=== PATIENT | male | born 1960 | race Caucasian/White ===

== ENCOUNTER 2017-05-05 16:29 | Emergency (ER) | payer SELFPAY ==
[~2017-05-05] VITALS: Ht 188 cm; Wt 102.0 kg
[2017-05-05] MEDS ORDERED: LISINOPRIL10 MG PO (16:37)
[2017-05-05 17:11] LABS: HEMATOCRIT 38.6 % (39.0-50.0); HEMOGLOBIN 13.2 g/dl (14.0-18.0); IMMATURE GRANULOCYTES 0.2 % (0.0-1.0); MEAN CELL VOLUME 93.2 fL CALC (80.0-100.0); MEAN CORPUSCULAR HGB 31.9 pG CALC (26.0-32.0); MEAN CORPUSCULAR HGB CONC 34.2 g/L CALC (32.0-36.0); NEUT# 2.61 thou/uL (1.82-7.42); RED BLOOD COUNT 4.14 mill/uL (4.70-6.10); RED CELL DISTRI WIDTH 12.2 % (11.5-15.5)
[2017-05-05 17:24] LABS: URINE BILIRUBIN - DIPSTICK NEGATIVE (NEGATIVE); URINE BLOOD DIPSTICK TRACE-INTACT (NEGATIVE); URINE CLARITY CLEAR; URINE COLOR YELLOW; URINE GLUCOSE - DIPSTICK NEGATIVE (NEGATIVE); URINE KETONE NEGATIVE (NEGATIVE); URINE LEUK ESTERASE NEGATIVE (NEGATIVE); URINE NITRITE - DIPSTICK NEGATIVE (Negative); URINE PROTEIN - DIPSTICK NEGATIVE (NEG-TRACE); URINE SPECIFIC GRAVITY <=1.005; URINE UROBILINOGEN - DIPSTICK 0.2 E.U./dL (0.2)
[2017-05-05 17:27] LABS: BARBITURATES NEGATIVE (NEGATIVE); COCAINE NEGATIVE (NEGATIVE); METHADONE NEGATIVE (NEGATIVE); OXCYCODONE NEGATIVE (NEGATIVE); TETRAHYDROCANNABIONOL NEGATIVE (NEGATIVE); TRICYLIC ANTIDEPRESSANTS NEGATIVE (NEGATIVE)
[2017-05-05 17:31] LABS: ALBUMIN 4.3 g/dL (3.2-5.0); ALKALINE PHOSPHATASE 77 u/l (38-126); ANION GAP 16 (6-22 (CALC)); BILIRUBIN, TOTAL 0.7 mg/dL (0.0-1.4); BUN 10 mg/dL (9-20); BUN/CREATININE RATIO 12 (12-20 (CALC)); CALCIUM 9.4 mg/dL (8.4-10.2); CARBON DIOXIDE 22 mmol/l (22-30); CHLORIDE 109 mmol/l (95-108); CREATININE 0.8 mg/dL (0.7-1.3); GFR > 60 ML/MIN (>=60 (CALC)); GFR FOR AFR.AMER. > 60 ML/MIN (>=60 (CALC)); GLUCOSE 115 mg/dL (75-110); POTASSIUM 3.6 mmol/l (3.5-5.1); SGOT/AST 23 u/l (17-59); SGPT/ALT 44 u/l (21-72); SODIUM 143 mmol/l (137-146); TOTAL PROTEIN 6.7 g/dL (6.3-8.2)
[2017-05-05 17:33] LABS: ETHYL ALCOHOL 24 mg/dl (0-30)
[2017-05-05] MEDS ORDERED: NEXIUM40 M1 PO (19:10)
[2017-05-05 19:56] VITALS: BP 141/94
== END 2017-05-05 19:57 | disposition short-term general hospital (02) | DRG 880 ==
LOC: ED 16:29
PROVIDERS: Emergency Medicine
DX: R45.851 Suicidal ideations (principal); Z91.14 Patient's other noncompliance with medication regimen; F32.9 Major depressive disorder, single episode, unspecified; G89.29 Other chronic pain; M54.9 Dorsalgia, unspecified; M54.2 Cervicalgia; F17.200 Nicotine dependence, unspecified, uncomplicated; Z91.5 Personal history of self-harm

== ENCOUNTER 2017-06-08 13:16 | Emergency (ER) | payer SELFPAY ==
[~2017-06-08] VITALS: Ht 188 cm; Wt 115.0 kg
[~2017-06-08 13:16] MED LIST: LISINOPRIL10 MG PO; NEXIUM40 M1 PO
[2017-06-08] MEDS ORDERED: CHILD ASA LS81 MG PO (13:52)
[2017-06-08] MEDS ORDERED: WELLBUTRIN SR150 MG PO (13:53)
[2017-06-08] MEDS ORDERED: TRAZODONE50 MG PO (13:54)
[2017-06-08] MEDS ORDERED: GABAPENTIN300 M2 PO (13:55)
[2017-06-08] MEDS ORDERED: PERCOCET 5/325M1 TAB PO (14:47)
[2017-06-08] MEDS ORDERED: PREDNISONE50 MG PO (14:47)
[2017-06-08] MEDS ORDERED: FLEXERIL PO (14:47)
[2017-06-08 15:13] VITALS: BP 160/80
== END 2017-06-08 15:35 | disposition home or self-care (01) | DRG 552 ==
LOC: ED 13:16
DX: M54.41 Lumbago with sciatica, right side (principal)